=== PATIENT | female | born 2000 | race Two or more races ===

== ENCOUNTER 2021-06-24 14:20 | Outpatient (CLI) | payer OTHER | END 2021-06-24 15:56 | disposition home or self-care (01) | LOC: PRENATAL 14:20 | PROVIDERS: ATTEND Obstetrics & Gynecology Maternal & Fetal Medicine | DX: O35.0XX1 Maternal care for (suspected) central nervous system malformation in fetus, fetus 1 (principal); O35.3XX1 Maternal care for (suspected) damage to fetus from viral disease in mother, fetus 1; O98.512 Other viral diseases complicating pregnancy, second trimester; Z36.89 Encounter for other specified antenatal screening; Z3A.23 23 weeks gestation of pregnancy ==

== ENCOUNTER 2021-09-26 16:25 | Inpatient (IN) | payer OTHER ==
[~2021-09-26] VITALS: Ht 154.9 cm; Wt 71.7 kg
[2021-09-26] MEDS ORDERED: PRENATAL TABLE1 EAC1 PO (16:57)
[2021-09-27] MEDS ORDERED: FOLIC ACID1 MG (08:45)
== END 2021-09-28 14:07 | disposition home or self-care (01) | DRG 805 ==
LOC: LDR 16:25 → OB/GYN 16:25
PROVIDERS: ADMIT Student in an Organized Health Care Education/Training Program; ATTEND Student in an Organized Health Care Education/Training Program
PROC: 10E0XZZ Delivery of Products of Conception, External Approach (ICD-10-PCS; principal; 2021-09-26)
PROC: 0KQM0ZZ Repair Perineum Muscle, Open Approach (ICD-10-PCS; 2021-09-26)
PROC: 4A1HXCZ Monitoring of Products of Conception, Cardiac Rate, External Approach (ICD-10-PCS; 2021-09-26)
DX: O70.1 Second degree perineal laceration during delivery (principal); O60.14X0 Preterm labor third trimester with preterm delivery third trimester, not applicable or unspecified; Z37.0 Single live birth; Z3A.36 36 weeks gestation of pregnancy; Z20.822 Contact with and (suspected) exposure to COVID-19